=== PATIENT | female | born 1940 | race African-American/Black ===

== ENCOUNTER 2019-11-07 07:41 | Inpatient (IN) | payer MEDICARE, MEDICAID ==
[~2019-11-07] VITALS: Ht 149.9 cm; Wt 46.5 kg
[~2019-11-07 07:41] MED LIST: ASPI-1497 PO; BACL-141 PO; CALC-696 PO; CLOB15OI3 TP; CORTISONE; DEXL60CA3 PO; DILT360T13 MT; FAMO20TA8 PO; FLUT15.844 BOTHNSTRLS; FLUT50BL IH; HYDR-4135 MT; HYDR12.529 PO; LEVO100T9 PO; LORA0.5T2 PO; LOSA25TA26 PO; MOME13HF2 INH; NASOI BOTHNSTRLS; RAMI2.5C6 PO; SIMV10TA97 PO; TRAM50TA3 PO; VALA500T PO
[2019-11-07] MEDS ORDERED: MECL-159 PO (09:50)
[2019-11-07] MEDS ORDERED: HYDR28CR68 TP (09:50)
[2019-11-07] MEDS ORDERED: CLOP75TA4 PO (09:50)
[2019-11-07] MEDS ORDERED: LEVO88TA7 PO (09:50)
[2019-11-07] MEDS ORDERED: IOHEXOL-300 100 ML BOTTLE ONE (10:02)
[2019-11-07] MEDS ORDERED: LIDOCAINE HCL 1% 20ML VIAL (Pyxis) INJ ONE (10:02)
[2019-11-07] MEDS ORDERED: IODIXANOL 320MG/ML 100 ML BOTTLE IV ONE (10:02)
[2019-11-07] MEDS ORDERED: MIDAZOLAM HCL 2 MG/2 ML VIAL ONE (10:16)
[2019-11-07] MEDS ORDERED: FENTANYL CITRATE/PF 50MCG/ML 2ML VIAL ONE (10:17)
[2019-11-07] MEDS ORDERED: ASPIRIN 325MG EC TABLET PO ONE (11:28)
[2019-11-07] MEDS ORDERED: CLOPIDOGREL 75MG TABLET ONE (11:28)
[2019-11-07] MEDS ORDERED: ACETAMINOPHEN 325MG TABLET PO PRN (11:45)
[2019-11-07] MEDS ORDERED: ONDANSETRON HCL 4MG/2ML INJ IV PRN (11:45)
[2019-11-07] MEDS ORDERED: ATROPINE SULFATE 1MG/10ML SYR IV PRN (11:45)
[2019-11-07] MEDS ORDERED: HEPARIN SODIUM 1,000 UNIT/1ML VIAL IV ONE (11:55)
[2019-11-07] MEDS ORDERED: NITROGLYCERIN 50MCG/ML 10ML VIAL (CATH LAB) IV ONE (11:55)
[2019-11-07 12:42] VITALS: BP 143/68
[2019-11-07 14:00] VITALS: BP 130/60
[2019-11-07 16:00] VITALS: BP 125/57
[2019-11-07] MEDS: HYDRALAZINE HCL 50MG TABLET PO SCH (17:17)
[2019-11-07] MEDS: CALCIUM CARBONATE 1250MG TABLET (500MG ELEMENTAL CALCIUM) PO SCH (17:17)
[2019-11-07 18:00] VITALS: BP 121/54
[2019-11-07 20:00] VITALS: BP 120/54
[2019-11-07] MEDS ORDERED: LORAZEPAM 0.5MG TABLET PO SCH (21:00)
[2019-11-07] MEDS ORDERED: ATORVASTATIN CALCIUM 10MG TABLET PO SCH (21:00)
[2019-11-07] MEDS ORDERED: MEDICATION NOT ON FORMULARY EA (Simvastatin 10 MG) PO SCH (21:00)
[2019-11-07 22:00] VITALS: BP 111/45
[2019-11-08] VITALS: BP 113/46
[2019-11-08 02:00] VITALS: BP 112/48
[2019-11-08 04:00] VITALS: BP 110/48
[2019-11-08 06:00] VITALS: BP 113/53
[2019-11-08] MEDS ORDERED: LEVOTHYROXINE SODIUM 88MCG TABLET PO SCH (06:50)
[2019-11-08 07:03] LABS: BASOPHILS % 1.3 % (0.0-2.0); EOSINOPHILS % 3.4 % (0.0-5.0); HEMOGLOBIN. 10.7 g/dL (12.0-16.0); LYMPHOCYTES % 16.5 % (20.0-50.0); MEAN CORPUSCULAR HEMOGLOBIN 28.4 pg (28.0-32.0); MEAN CORPUSCULAR VOLUME 84.8 fL (81.0-99.0); MEAN PLATELET VOLUME 7.6 fl (7.4-10.4); MONOCYTES % 11.8 % (2.0-8.0); PLATELET 224 x1000/uL (130-400); RED BLOOD CELL COUNT 3.77 mill/uL (4.2-5.4); RED CELL DISTRIBUTION WIDTH 15.3 % (11.6-14.6)
[2019-11-08 08:00] VITALS: BP 122/61
[2019-11-08] MEDS: HYDRALAZINE HCL 50MG TABLET PO SCH (08:13)
[2019-11-08] MEDS: CALCIUM CARBONATE 1250MG TABLET (500MG ELEMENTAL CALCIUM) PO SCH (08:14)
[2019-11-08 08:35] VITALS: BP 122/65
[2019-11-08] MEDS ORDERED: MEDICATION NOT ON FORMULARY EA (Dexlansoprazole (Dexilant) 60 MG) PO SCH (09:00)
[2019-11-08] MEDS ORDERED: CLOPIDOGREL 75MG TABLET PO SCH ×2 (09:00)
[2019-11-08] MEDS ORDERED: DILTIAZEM HCL 180MG CAPSULE CD 24HR PO SCH (09:00)
[2019-11-08] MEDS ORDERED: MECLIZINE 25MG TABLET PO SCH (09:00)
[2019-11-08] MEDS ORDERED: LOSARTAN POTASSIUM 25 MG TABLET PO SCH (09:00)
[2019-11-08] MEDS ORDERED: ASPIRIN 81MG EC TABLET PO SCH (09:00)
[2019-11-08] MEDS ORDERED: FAMOTIDINE 20MG TABLET PO SCH (09:00)
[2019-11-08] MEDS ORDERED: ASPIRIN 325MG TABLET PO SCH (09:00)
[2019-11-08] MEDS ORDERED: MEDICATION NOT ON FORMULARY EA (Diltiazem HCl (Diltiazem ER) 1 TAB) MT SCH (09:00)
[2019-11-08] MEDS ORDERED: TRAMADOL 50MG TABLET PO SCH (09:00)
== END 2019-11-08 10:41 | disposition home or self-care (01) | DRG 272 ==
LOC: CCL 07:41 → 3WST 07:42
PROVIDERS: ADMIT Specialist; ATTEND Specialist
PROC: 04CL3ZZ Extirpation of Matter from Left Femoral Artery, Percutaneous Approach (ICD-10-PCS; principal; 2019-11-07)
PROC: 047L34Z Dilation of Left Femoral Artery with Drug-eluting Intraluminal Device, Percutaneous Approach (ICD-10-PCS; 2019-11-07)
PROC: B41GYZZ Fluoroscopy of Left Lower Extremity Arteries using Other Contrast (ICD-10-PCS; 2019-11-07)
DX: I70.212 Atherosclerosis of native arteries of extremities with intermittent claudication, left leg (principal); E03.9 Hypothyroidism, unspecified; E78.5 Hyperlipidemia, unspecified; F17.210 Nicotine dependence, cigarettes, uncomplicated; I25.10 Atherosclerotic heart disease of native coronary artery without angina pectoris; F41.9 Anxiety disorder, unspecified; K21.9 Gastro-esophageal reflux disease without esophagitis; M19.90 Unspecified osteoarthritis, unspecified site; K57.90 Diverticulosis of intestine, part unspecified, without perforation or abscess without bleeding; J44.9 Chronic obstructive pulmonary disease, unspecified; N18.9 Chronic kidney disease, unspecified; I13.10 Hypertensive heart and chronic kidney disease without heart failure, with stage 1 through stage 4 chronic kidney disease, or unspecified chronic kidney disease; Z79.02 Long term (current) use of antithrombotics/antiplatelets; Z82.3 Family history of stroke; Z82.49 Family history of ischemic heart disease and other diseases of the circulatory system
CPT/HCPCS: 36415; 37227; 75710; 80048; 85025; 85347; C1724; C1725; C1760; C1769; C1887; C1893; C1894; J1644; J2250; J3010; J3490; J8597; Q9967